=== PATIENT | female | born 1980 | race Caucasian/White ===

== ENCOUNTER 2022-06-03 19:26 | Emergency (ER) | payer BC ==
[2022-06-03] MEDS ORDERED: Sodium Chloride 0.9% 10 ML Syringe FLUSH PRN (19:54)
[2022-06-03] MEDS ORDERED: Ondansetron 4 MG/2 ML SDV IVPUSH ONE (19:54)
[2022-06-03] MEDS ORDERED: Sodium Chloride 0.9% 1,000 ML IV SCH (20:00)
[2022-06-03 20:18] LABS: ESTIMATED GFR 73 mL/min (>60)
[2022-06-03] MEDS ORDERED: Potassium Chloride 20 MEQ Tab.ER PO ONE (20:54)
== END 2022-06-03 21:30 | disposition home or self-care (01) ==
LOC: JP.ED 19:26
DX: R55 Syncope and collapse (principal); E86.0 Dehydration; E86.1 Hypovolemia; E87.6 Hypokalemia; I10 Essential (primary) hypertension; Z79.899 Other long term (current) drug therapy
CPT/HCPCS: 36415; 80053; 85025; 96361; 96374; 99284; A9270; J2405; J3490; J7030